=== PATIENT | female | born 1980 | race Two or more races ===

== ENCOUNTER 2016-10-27 19:19 | Observation (INO) | payer SELFPAY ==
[2016-10-27] MEDS ORDERED: IV RINGERS,LACTATED 1000ML 1,000 ML IV SCH (19:42)
[2016-10-27 21:00] LABS: BILIRUBIN,URINE NEGATIVE (NEG); GLUCOSE,URINE NEGATIVE (NEG); NITRITE,URINE NEGATIVE (NEG); PH,URINE 5.5; PROTEIN,URINE NEGATIVE (NEG-TRACE)
[2016-10-27 21:09] LABS: OBC FLU VALID
[2016-10-27 21:13] LABS: RBC,URINE 0 /HPF (0-2); WBC,URINE OCC /HPF (0-4)
[2016-10-27 21:14] LABS: BACTERIA,URINE FEW /HPF (0-FEW); SQUAMOUS EPITHELIAL CELL,UR OCC /LPF
[2016-10-27 21:32] LABS: NEGATIVE OBC STREP NEG; POSITIVE OBC STREP POS
== END 2016-10-27 22:00 | disposition home or self-care (01) ==
LOC: 3 SO LND 19:19
PROVIDERS: ADMIT Obstetrics & Gynecology; ATTEND Obstetrics & Gynecology
DX: O26.893 Other specified pregnancy related conditions, third trimester (principal); R10.2 Pelvic and perineal pain; R10.30 Lower abdominal pain, unspecified; R11.0 Nausea; O99.513 Diseases of the respiratory system complicating pregnancy, third trimester; R05 Cough; R09.81 Nasal congestion; Z3A.00 Weeks of gestation of pregnancy not specified
CPT/HCPCS: 81001; 87804; 87880; G0378; G0379; 87070

== ENCOUNTER 2016-11-19 05:10 | Observation (INO) | payer SELFPAY ==
[2016-11-19] MEDS ORDERED: IV RINGERS,LACTATED 1000ML 1,000 ML IV SCH (05:15)
[2016-11-19] MEDS ORDERED: ONDANSETRON PF 4 MG/2 ML VIAL. IV PRN (05:30)
[2016-11-19 05:37] LABS: BILIRUBIN,URINE NEGATIVE (NEG); GLUCOSE,URINE NEGATIVE (NEG); NITRITE,URINE NEGATIVE (NEG); PH,URINE 6.5; PROTEIN,URINE NEGATIVE (NEG-TRACE)
[2016-11-19 05:49] LABS: BACTERIA,URINE FEW /HPF (0-FEW); RBC,URINE 0 /HPF (0-2); SQUAMOUS EPITHELIAL CELL,UR MANY /LPF
[2016-11-19 07:51] LABS: BASO % 0 % (0-3); EOS % 2 % (0-3); HEMATOCRIT 36.5 % (36.0-47.0); HEMOGLOBIN 12.1 g/dL (12.0-15.5); LYMPH # 2.2 x10^3/uL (1.0-4.8); LYMPH % 17 % (24-48); MEAN CORPUSCULAR HEMOGLOBIN 28 pg (25-35); MEAN CORPUSCULAR HGB CONC 33 g/dL (31-37); MEAN CORPUSCULAR VOLUME 84 fL (79-100); MONO % 7 % (0-9); NEUT % 75 % (31-73); PLATELET COUNT 185 x10^3/uL (140-400); RED BLOOD COUNT 4.34 x10^6/uL (3.50-5.40); WHITE BLOOD COUNT 12.9 x10^3/uL (4.0-11.0)
== END 2016-11-19 10:38 | disposition home or self-care (01) ==
LOC: 3 SO LND 05:10
PROVIDERS: ADMIT Specialist; ATTEND Specialist
DX: O26.853 Spotting complicating pregnancy, third trimester (principal); O62.9 Abnormality of forces of labor, unspecified; Z3A.38 38 weeks gestation of pregnancy
CPT/HCPCS: 36415; 81001; 85027; 86593; 86850; 86900; 86901; 87086; 96360; G0378; G0379; J7120

== ENCOUNTER 2016-11-20 01:54 | Inpatient (IN) | payer SELFPAY ==
[~2016-11-20] VITALS: Ht 167.6 cm; Wt 91.2 kg
[2016-11-20] MEDS ORDERED: 0.9 % SODIUM CHLORIDE 10 ML DISP.SYRIN. IV PRN ×2 (02:15→05:45)
[2016-11-20] MEDS ORDERED: TERBUTALINE 1 MG/ML VIAL. SQ PRN (02:15)
[2016-11-20] MEDS ORDERED: ONDANSETRON PF 4 MG/2 ML VIAL. IV PRN (02:15)
[2016-11-20] MEDS ORDERED: LIDOCAINE 1% PF 30 ML VIAL. INJ PRN (02:15)
[2016-11-20] MEDS ORDERED: BUTORPHANOL 2 MG VIAL. IV PRN (02:15)
[2016-11-20] MEDS ORDERED: FENTANYL PF 100 MCG/2 ML VIAL. IV PRN (02:15)
[2016-11-20] MEDS ORDERED: IBUPROFEN 600 MG TABLET. PO PRN (02:15)
[2016-11-20] MEDS ORDERED: OXYTOCIN 30 UNIT/500 ML PREMIX 500 ML IV PRN ×2 (02:15→05:45)
[2016-11-20 02:30] VITALS: BP 135/82
[2016-11-20 02:33] LABS: HEMATOCRIT 38.7 % (36.0-47.0); HEMOGLOBIN 13.1 g/dL (12.0-15.5); RED BLOOD COUNT 4.63 x10^6/uL (3.50-5.40); RED CELL DISTRIBUTION WIDTH 13.9 % (11.5-14.5)
[2016-11-20] MEDS: IV RINGERS,LACTATED 1000ML 1,000 ML IV SCH ×2 (02:49→03:26)
[2016-11-20] MEDS ORDERED: PENICILLIN G K 5,000,000 UNIT in IV NORMAL SALINE 100ML 100 ML IV ONE (03:00)
[2016-11-20] MEDS ORDERED: L&D EPIDURAL CASSETTE 100 ML EP ONE (03:01)
[2016-11-20] MEDS ORDERED: ROPIVacaine 0.2% IN 0.9%NACL PF 40 MG/20 ML DISP.SYRIN. ONE (03:01)
[2016-11-20] MEDS ORDERED: OXYTOCIN in NORMAL SALINE PREMIX 30 UNIT/500 ML BAG. IV ONE (05:00)
--- NOTE | 2016-11-20 05:40 | PDOC1 ---
OB - History Hx of Present Care: Good Care Ultrasounds: Normal mid trimester US Obstetrical Complications: None Medical Complications: None Past Family/Social History * Past Medical, Surgical, Family and Obstetric Histories reviewed from chart. Rubella: Immune RPR/VDRL: Negative GBS Status: Positive HBsAG: Negative OB - Chief Complaint & HPI Date of Admission: Date of Admission: Nov 20, 2016 at 01:54 Chief Complaint/History : 9 Para: 5 EGA: 38 Reason for admission: active labor Admission Nurse Assessment Rev: Yes Problems: OB - Admission Exam Physical Exam Vitals: VS - Last 72 Hours, by Label Date Time Temp Pulse Resp B/P Pulse Ox O2 Delivery O2 Flow Rate FiO2 11/20/16 03:08 18 100 Room Air 11/20/16 02:30 97.8 89 20 135/82 Room Air 97.8 HEENT: Normal Heart: Regular Rate Lungs: Clear Abdomen: Gravid, Non tender, Soft Extremities: Edema Reflexes: Normal Cervical Dilatation: 6cm Effacement: 100% Station: -1 Membranes: Intact Heart Rate: Normal Accelerations: Accelerations Present Decelerations: No decelerations Contractions on Admission: 6-10 Minutes Apart Intensity: Firm Text A: 38 wks IUP [place] Multip Active labor GBS positive P: Admit for labor management. SHEELA Kathleen Jr, MD Nov 20, 2016 05:40
--- NOTE | 2016-11-20 05:41 | PDOC ---
VAGINAL DELIVERY DATE DATE: 11/20/16 TIME: 05:40 : Other (9) Para: 6 EGA: 38 VAGINAL DELIVERY: VTX VACCUM ASSISTED: No PLACENTA: Spontaneous 8/9 SEX: Female WEIGHT Weight [ 3025 gm] Nuchal Cord: No Amniotic Fluid: Clear PAIN: Epidural EPISIOTOMY: No EXTENSION: No EBL 300 ml COMPLICATIONS none CONDITION pt. stable Signs of Intrauterine Infectio: None Shoulder Dystocia: No Problems: SHEELA EDWARDS Jr, MD Nov 20, 2016 05:41
[2016-11-20] MEDS ORDERED: DOCUSATE SODIUM 100 MG CAPSULE PO PRN (05:45)
[2016-11-20] MEDS ORDERED: ACETAMINOPHEN 325 MG TABLET. PO PRN (05:45)
[2016-11-20] MEDS ORDERED: BENZOCAINE 20% TOPICAL AEROSOL SPRAY 57GM CAN. TP PRN (05:45)
[2016-11-20] MEDS ORDERED: HYDROCORTISONE 1% TOPICAL OINTMENT 30GM TUBE. TP PRN (05:45)
[2016-11-20] MEDS ORDERED: SIMETHICONE 80 MG TAB.CHEW PO PRN (05:45)
[2016-11-20] MEDS ORDERED: MAGNESIUM HYDROXIDE 2,400 MG/30 ML ORAL.SUSP. PO PRN (05:45)
[2016-11-20] MEDS ORDERED: MAG HYDROX/ALUMINUM HYD/SIMETH 30 ML ORAL.SUSP PO PRN (05:45)
[2016-11-20] MEDS ORDERED: PHENYLEPH/MINERAL OIL/PETROLAT RECTAL OINTMENT 28GM TUBE. RC PRN (05:45)
[2016-11-20] MEDS ORDERED: MMR per PROTOCOL. MC PRN (05:45)
[2016-11-20] MEDS ORDERED: ZOLPIDEM 5 MG TABLET. PO PRN (05:45)
[2016-11-20] MEDS ORDERED: DIPHENHYDRAMINE HCL 25 MG CAPSULE PO PRN (05:45)
[2016-11-20] MEDS ORDERED: PENICILLIN G K 2,500,000 UNIT in IV NORMAL SALINE 50ML 50 ML IV SCH (07:00)
[2016-11-20 08:30] VITALS: BP 128/82
[2016-11-20 13:33] VITALS: BP 124/80
[2016-11-20 15:20] VITALS: BP 121/82
[2016-11-20] MEDS: IBUPROFEN 800 MG TABLET. PO PRN (16:11)
[2016-11-20 16:50] VITALS: BP 120/78
[2016-11-20 23:13] VITALS: BP 109/63
[2016-11-21] MEDS: IBUPROFEN 800 MG TABLET. PO PRN ×3 (01:02→16:04)
[2016-11-21 04:10] VITALS: BP 115/65
[2016-11-21 07:10] LABS: BASO # 0.1 x10^3/uL (0.0-0.2); BASO % 0 % (0-3); EOS % 2 % (0-3); HEMATOCRIT 36.5 % (36.0-47.0); LYMPH # 3.6 x10^3/uL (1.0-4.8); LYMPH % 29 % (24-48); MEAN CORPUSCULAR HEMOGLOBIN 28 pg (25-35); MEAN CORPUSCULAR HGB CONC 33 g/dL (31-37); MEAN CORPUSCULAR VOLUME 85 fL (79-100); MONO % 6 % (0-9); NEUT % 63 % (31-73); PLATELET COUNT 173 x10^3/uL (140-400); RED BLOOD COUNT 4.29 x10^6/uL (3.50-5.40); RED CELL DISTRIBUTION WIDTH 14.2 % (11.5-14.5); WHITE BLOOD COUNT 12.2 x10^3/uL (4.0-11.0)
--- NOTE | 2016-11-21 07:37 | DISCH ---
DISCHARGE INSTRUCTIONS Condition on Discharge Condition on Discharge: Stable Activity After Discharge Activity Instructions for Disc: Activity as tolerated Lifting Instructions after Dis: No heavy lifting Driving Instructions after Dis: Do not drive today Diet after Discharge Diet after Discharge: Regular Contacting the DRBella after DC Call your doctor for: Concerns you may have Follow-Up Follow up with: Dr. Fatima in 2 weeks. SHEELA EDWARDS Jr, MD Nov 21, 2016 07:37
--- NOTE | 2016-11-21 07:37 | PDOC ---
OB Progress Note Date of Service 11/21/16 Time of Evaluation 0735 Notes PT. feeling well. No complaints. Pain controlled. Lochia minimal. Lab Laboratory Tests Test 11/20/16 02:15 11/21/16 06:30 White Blood Count 13.0x10^3/uL (4.0-11.0) 12.2x10^3/uL (4.0-11.0) Red Blood Count 4.63x10^6/uL (3.50-5.40) 4.29x10^6/uL (3.50-5.40) Hemoglobin 13.1g/dL (12.0-15.5) 12.0g/dL (12.0-15.5) Hematocrit 38.7% (36.0-47.0) 36.5% (36.0-47.0) Mean Corpuscular Volume 84fL (79-100) 85fL (79-100) Mean Corpuscular Hemoglobin 28pg (25-35) 28pg (25-35) Mean Corpuscular Hemoglobin Concent 34g/dL (31-37) 33g/dL (31-37) Red Cell Distribution Width 13.9% (11.5-14.5) 14.2% (11.5-14.5) Platelet Count 199x10^3/uL (140-400) 173x10^3/uL (140-400) RPR Titer Additional Testing Non reactive (Non Reactive) Neutrophils (%) (Auto) 63% (31-73) Lymphocytes (%) (Auto) 29% (24-48) Monocytes (%) (Auto) 6% (0-9) Eosinophils (%) (Auto) 2% (0-3) Basophils (%) (Auto) 0% (0-3) Neutrophils # (Auto) 7.7x10^3uL (1.8-7.7) Lymphocytes # (Auto) 3.6x10^3/uL (1.0-4.8) Monocytes # (Auto) 0.7x10^3/uL (0.0-1.1) Eosinophils # (Auto) 0.2x10^3/uL (0.0-0.7) Basophils # (Auto) 0.1x10^3/uL (0.0-0.2) Laboratory Tests Test 11/21/16 06:30 White Blood Count 12.2x10^3/uL (4.0-11.0) Red Blood Count 4.29x10^6/uL (3.50-5.40) Hemoglobin 12.0g/dL (12.0-15.5) Hematocrit 36.5% (36.0-47.0) Mean Corpuscular Volume 85fL (79-100) Mean Corpuscular Hemoglobin 28pg (25-35) Mean Corpuscular Hemoglobin Concent 33g/dL (31-37) Red Cell Distribution Width 14.2% (11.5-14.5) Platelet Count 173x10^3/uL (140-400) Neutrophils (%) (Auto) 63% (31-73) Lymphocytes (%) (Auto) 29% (24-48) Monocytes (%) (Auto) 6% (0-9) Eosinophils (%) (Auto) 2% (0-3) Basophils (%) (Auto) 0% (0-3) Neutrophils # (Auto) 7.7x10^3uL (1.8-7.7) Lymphocytes # (Auto) 3.6x10^3/uL (1.0-4.8) Monocytes # (Auto) 0.7x10^3/uL (0.0-1.1) Eosinophils # (Auto) 0.2x10^3/uL (0.0-0.7) Basophils # (Auto) 0.1x10^3/uL (0.0-0.2) Medications Current Medications Sodium Chloride 3 ml 3 ml QSHIFT PRN IV AFTER MEDS AND BLOOD DRAWS; Start 11/20 at 02:15 Lactated Ringer's (Iv Lactated Ringers) 1,000 ml @ 125 mls/hr Q8H IV Last administered on 11/20/16t 03:26; Start 11/20/16 at 02:02 Butorphanol Tartrate (Stadol) 2 mg PRN Q1HR PRN IV Severe labor pain; Start at 02:15 Fentanyl Citrate (Fentanyl 2ml Vial) 100 mcg PRN Q30MIN PRN IV Severe pain; Start 11/20/16 at 02:15 Ondansetron HCl (Zofran) 4 mg PRN Q4HRS PRN IV NAUSEA/VOMITING; Start 11/20/16 at 02:15 Terbutaline Sulfate (Brethine) 0.25 mg 1X PRN PRN SQ SEE COMMENTS; Start at 02:15; Stop 11/21/16 at 02:14; Status DC Lidocaine HCl 30 ml 30 ml 1X PRN PRN INJ SEE COMMENTS; Start 11/20/16 at 02:15 ; Stop 11/22/16 at 02:14 Oxytocin/Sodium Chloride (Oxytocin Premix Infusion) 500 ml @ 0 mls/hr CONT PRN PRN IV Post delivery bleeding; Start 11/20/16 at 02:15 Ibuprofen 600 mg 600 mg PRN Q6HRS PRN PO MODERATE PAIN; Start 11/20/16 at 02:15 ; Stop 11/20/16 at 05:53; Status DC Penicillin G Potassium [id number] unit/Sodium Chloride 100 ml @ 100 mls/hr 1X ONCE IV Last administered on 11/20/16 02:50; Start 11/20/16 at 03:00; Stop at 03:59; Status DC Penicillin G Potassium [id number] unit/Sodium Chloride 50 ml @ 100 mls/hr Q4H IV ; Start 11/20/16 at 07:00 Ropivacaine/ Fentanyl/NS ([id number]-[id number]-ZM 3 Mcg-0.1%) 100 ml @ As Directed STK-MED ONCE EP Last administered on 11/20/16 03:08; Start 11/20/16 at 03:01; Stop 11/20/16 at 03:02; Status DC Ropivacaine 40 mg STK-MED ONCE .ROUTE Last administered on 11/20/16 03:06; Start 11/20/16 at 03:01; Stop 11/20/16 at 03:02; Status DC Sodium Chloride 10 ml 10 ml QSHIFT PRN IV AFTER MEDS AND BLOOD DRAWS; Start at 05:45 Oxytocin/Sodium Chloride (Oxytocin Premix Infusion) 500 ml @ 62.5 mls/hr CONT PRN IV SEE I/O RECORD; Start 11/20/16 at 05:45; Stop 11/20/16 at 13:44; Status DC Acetaminophen (Tylenol) 650 mg PRN Q6HRS PRN PO MILD PAIN / TEMP; Start at 05:45 Ibuprofen (Motrin) 800 mg PRN Q8HRS PRN PO INFLAMMATION/PAIN PREVENTION Last administered on 11/21/16t 01:02; Start 11/20/16 at 05:45 Docusate Sodium (Colace) 100 mg PRN BID PRN PO CONSTIPATION; Start 11/20/16 at 05:45 Magnesium Hydroxide (Milk Of Magnesia) 2,400 mg PRN DAILY PRN PO CONSTIPATION; Start 11/20/16 at 05:45 Al Hydroxide/Mg Hydroxide (Mylanta Plus Xs) 30 ml PRN Q4HRS PRN PO HEARTBURN / GAS; Start 11/20/16 at 05:45 Simethicone (Gas-X) 80 mg PRN AFTMEALHC PRN PO GAS / BLOATING; Start 11/20/16 at 05:45 Diphenhydramine HCl (Benadryl) 25 mg PRN Q6HRS PRN PO ITCHING; Start 11/20/16 at 05:45 Benzocaine (Americaine) 1 spray PRN QID PRN TP TOPICAL PAIN; Start 11/20/16 at 05:45 Phenyleph/Shark Oil/Min Oil/Petrol (Preparation H) 1 delisa PRN QID PRN RC RECTAL PAIN; Start 11/20/16 at 05:45 Hydrocortisone (Cortaid) 1 delisa PRN QID PRN TP PERINEAL PAIN; Start 11/20/16 at 05:45 Ferrous Sulfate (Feosol) 325 mg BIDWMEALS PO ; Start 11/21/16 at 08:00 Zolpidem Tartrate (Ambien) 5 mg PRN QHS PRN PO INSOMNIA, MAY REPEAT X1; Start 11/20/16 at 05:45 Info (Do NOT chart on this placeholder) 1 ea 1X PRN PRN MC SEE COMMENTS; Start 11/20/16 at 05:45 Info (Do NOT chart on this placeholder) 1 ea 1X PRN PRN MC SEE COMMENTS; Start 11/20/16 at 05:45 Oxycodone/ Acetaminophen (Percocet 5/325) 2 tab PRN Q4HRS PRN PO MODERATE PAIN , SEVERE PAIN; Start 11/20/16 at 05:45 Oxytocin/Sodium Chloride (Oxytocin Premix Infusion) 30 unit STK-MED ONCE IV ; Start 11/20/16 at 05:00; Stop 11/20/16 at 08:52; Status DC Exam Abd: soft, non tender, fundus firm Assessment PPD# 1 s/p Plan of Care: Continue current Tx, Mgmt SHEELA EDWARDS Jr, MD Nov 21, 2016 07:37
[2016-11-21] MEDS ORDERED: NAPR500T PO (07:39)
[2016-11-21] MEDS ORDERED: HYDR-971 PO (07:39)
[2016-11-21] MEDS ORDERED: FERROUS SULFATE 325 MG TABLET PO SCH (08:00)
[2016-11-21 10:46] VITALS: BP 122/71
[2016-11-21 14:40] VITALS: BP 105/63
[2016-11-21 17:30] VITALS: BP 117/72
[2016-11-21] MEDS: OXYCODONE/APAP 5/325 TABLET. PO PRN (19:48)
[2016-11-21 22:15] VITALS: BP 126/76
[2016-11-22 05:30] VITALS: BP 125/79
[2016-11-22] MEDS: IBUPROFEN 800 MG TABLET. PO PRN (08:34)
[2016-11-22 10:20] VITALS: BP 110/68
[2016-11-22] MEDS: OXYCODONE/APAP 5/325 TABLET. PO PRN (12:22)
== END 2016-11-22 15:48 | disposition home or self-care (01) | DRG 775 ==
LOC: OBSVTOIN 01:54 → 3 SO LND 01:54 → 3 NORTH 08:50
PROVIDERS: ADMIT Specialist; ATTEND Specialist
PROC: 10E0XZZ Delivery of Products of Conception, External Approach (ICD-10-PCS; principal; 2016-11-20)
DX: O99.824 Streptococcus B carrier state complicating childbirth (principal); Z37.0 Single live birth; Z3A.38 38 weeks gestation of pregnancy
CPT/HCPCS: 36415; 85027; 86593; 86850; 86900; 86901; G0378; J2540; J2590; J2795; J7120

== ENCOUNTER 2018-11-26 23:57 | Observation (INO) | payer SELFPAY ==
[2018-04-09 13:05] VITALS: BP 118/66
[~2018-11-26 23:57] MED LIST: HYDR-3164 PO; NAPR-683 PO
[2018-11-27] MEDS ORDERED: IV RINGERS,LACTATED 1000ML 1,000 ML IV PRN
[2018-11-27] MEDS ORDERED: ACETAMINOPHEN 325 MG TABLET. PO PRN
[2018-11-27 00:40] LABS: BILIRUBIN,URINE NEGATIVE (NEG); CLARITY,URINE CLEAR; COLOR,URINE YELLOW; NITRITE,URINE NEGATIVE (NEG); PROTEIN,URINE NEGATIVE (NEG-TRACE); UROBILINOGEN,URINE 0.2 mg/dL (0.2 mg/dL)
[2018-11-27 00:47] LABS: BARBITURATES NEG (NEG); BENZODIAZEPINES NEG (NEG); CANNABINOIDS NEG (NEG); COCAINE NEG (NEG); METHADONE NEG (NEG); OPIATES NEG (NEG); PHENCYCLIDINE NEG (NEG)
[2018-11-27 00:53] LABS: BACTERIA,URINE FEW /HPF (0-FEW); RBC,URINE 0 /HPF (0-2); SQUAMOUS EPITHELIAL CELL,UR MOD /LPF
[2018-11-27 00:56] LABS: AMPHETAMINE/METHAMPHETAMINE NEG (NEG)
== END 2018-11-27 01:25 | disposition home or self-care (01) ==
LOC: 3 SO LND 23:57
PROVIDERS: ADMIT Obstetrics & Gynecology; ATTEND Obstetrics & Gynecology
DX: O26.892 Other specified pregnancy related conditions, second trimester (principal); M25.551 Pain in right hip; M79.651 Pain in right thigh; W20.8XXA Other cause of strike by thrown, projected or falling object, initial encounter; Y93.89 Activity, other specified; Y92.89 Other specified places as the place of occurrence of the external cause; Y99.8 Other external cause status; Z3A.27 27 weeks gestation of pregnancy
CPT/HCPCS: 80307; 81001; 87086; G0379